=== PATIENT | male | born 2000 | race Caucasian/White ===

== ENCOUNTER 2020-03-02 05:21 | Emergency (ER) | payer BC, OTHER ==
[2020-03-02] MEDS ORDERED: ONDANSETRON 4 MG/2 ML VIAL ONE (06:14)
[2020-03-02] MEDS ORDERED: LORazepam 2 MG/ML VIAL ONE (06:14)
[2020-03-02] MEDS ORDERED: NA CHLORIDE 0.9% 2,000 ML ONE (06:14)
[2020-03-02 06:52] LABS: Urine Blood NEGATIVE (NEG); Urine Glucose NEGATIVE (NEG); Urine Protein TRACE (NEG); Urine Specific Gravity 1.025 (1.005-1.030); Urine pH 6.5 (5.0-7.0)
--- NOTE | 2020-03-02 07:13 | EDPHYS ---
Physician Documentation [facility] Name: Sotero Mchugh Age: 20 yrs Sex: Male : 2000 Arrival Date: 03/02/2020 Time: 05:22 Bed 8 Private MD: ED Physician Janes Cope HPI: 03/02 06:04 This 20 yrs old Male presents to ER via Ambulatory with complaints of pkl Anxiety, Nausea, Cough. 06:04 The patient presents to the emergency department with anxiety, depression, over work, pkl lost his job. Onset: The symptoms/episode began/occurred 3 month(s) ago. Patient has no appetite since yesterday. Saw his PCP and started on Buspirone and Protonix. Feels worse this morning and started having nausea and vomiting. Historical: - Allergies: 05:34 No Known Allergies; sg - Home Meds: 05:31 buspirone 7.5 mg Oral tab [Active]; pantoprazole oral oral [Active]; ea - PMHx: 05:31 GERD; Anxiety; ea - PSHx: 05:31 None; ea - Immunization history:: Adult Immunizations up to date. - Social history:: Smoking status: Patient denies any tobacco usage or history of. ROS: 06:04 Eyes: Negative for injury, pain, redness, and discharge, ENT: Negative for injury, pkl pain, and discharge, Neck: Negative for injury, pain, and swelling, Cardiovascular: Negative for chest pain, palpitations, and edema, Respiratory: Negative for shortness of breath, cough, wheezing, and pleuritic chest pain. 06:04 Abdomen/GI: Positive for nausea and vomiting, Negative for abdominal pain. 06:04 Back: Negative for acute changes. 06:04 : Negative for urinary symptoms. 06:04 MS/extremity: Negative for acute changes. 06:04 Skin: Negative for rash. 06:04 Neuro: Negative for altered mental status, loss of consciousness. 06:04 Psych: Positive for anxiety, depression. pkl Exam: 06:04 Head/Face: Normocephalic, atraumatic. Eyes: Pupils equal round and reactive to light, pkl extra-ocular motions intact. Lids and lashes normal. Conjunctiva and sclera are non-icteric and not injected. Cornea within normal limits. Periorbital areas with no swelling, redness, or edema. ENT: Nares patent. No nasal discharge, no septal abnormalities noted. Tympanic membranes are normal and external auditory canals are clear. Oropharynx with no redness, swelling, or masses, exudates, or evidence of obstruction, uvula midline. Mucous membranes moist. Neck: Trachea midline, no thyromegaly or masses palpated, and no cervical lymphadenopathy. Supple, full range of motion without nuchal rigidity, or vertebral point tenderness. No Meningismus. Chest/axilla: Normal chest wall appearance and motion. Nontender with no deformity. No lesions are appreciated. Cardiovascular: Regular rate and rhythm with a normal S1 and S2. No gallops, murmurs, or rubs. Normal PMI, no JVD. No pulse deficits. Respiratory: Lungs have equal breath sounds bilaterally, clear to auscultation and percussion. No rales, rhonchi or wheezes noted. No increased work of breathing, no retractions or nasal flaring. Abdomen/GI: Soft, non-tender, with normal bowel sounds. No distension or tympany. No guarding or rebound. No evidence of tenderness throughout. Back: No spinal tenderness. No costovertebral tenderness. Full range of motion. Skin: Warm, dry with normal turgor. Normal color with no rashes, no lesions, and no evidence of cellulitis. MS/ Extremity: Pulses equal, no cyanosis. Neurovascular intact. Full, normal range of motion. Neuro: Awake and alert, GCS 15, oriented to person, place, time, and situation. Cranial nerves II-XII grossly intact. Motor strength 5/5 in all extremities. Sensory grossly intact. Cerebellar exam normal. Normal gait. 06:04 Psych: Behavior/mood is anxious, Affect is calm, Patient has no thoughts/intents to harm self or others. Vital Signs: 05:30 BP 146 / 89; Pulse 88; Resp 16; Temp 98.1; Pulse Ox 100% on R/A; Weight 90.72 kg; sg Height 6 ft. 0 in. (182.88 cm); Pain 0/10; 06:53 BP 140 / 80; Pulse 87; Resp 16; Pulse Ox 98% on R/A; ea 05:30 Body Mass Index 27.12 (90.72 kg, 182.88 cm) sg MDM: 05:25 Patient medically screened. pkl 07:08 ED course: Patient signed out to me by Dr. Cope at shift change. Patient is here for ps1 psych evaluation. No SI/HI. Given ativan. Stable for discharge with follow up with [facility] OP. . 07:12 Data reviewed: vital signs, nurses notes, lab test result(s), and as a result, I will ps1 discharge patient. 03/02 05:56 Order name: UDS pkl 03/02 05:58 Order name: ETOH Level; Complete Time: 06:57 pkl 03/02 05:56 Order name: IV Saline Lock; Complete Time: 06:19 pkl 03/02 05:56 Order name: Labs collected and sent; Complete Time: 06:19 pkl 03/02 06:44 Order name: Urine Dipstick--Ancillary (enter results); Complete Time: 06:57 tt3 Administered Medications: 06:20 Drug: NS 0.9% 1000 ml Route: IV; Rate: 1000 ml; Site: left antecubital; ea 07:13 Follow up: IV Status: Completed infusion; IV Intake: 1000ml ss 06:20 Drug: NS 0.9% 1000 ml Route: IV; Rate: 125 ml/hr; Site: left antecubital; ea 07:54 Follow up: IV Status: IV converted to saline lock ss 06:20 Drug: Zofran (Ondansetron) 4 mg Route: IVP; Site: left antecubital; ea 06:42 Follow up: Response: No adverse reaction ea 06:42 Drug: Ativan 1 mg Route: IVP; Site: left antecubital; ea 06:53 Follow up: Response: No adverse reaction; Marked relief of symptoms ea 07:47 Drug: hydrOXYzine 25 mg Route: PO; ss 07:54 Follow up: Response: Medication administered at discharge. Disposition: 03/02/20 07:12 Discharged to Home. Impression: Adjustment disorder with depressed mood. - Condition is Stable. - Discharge Instructions: Adjustment Disorder, Adult. - Prescriptions for Hydroxyzine HCl 25 mg Oral Tablet - take 1 tablet by ORAL route every 6 hours As needed; 30 tablet. - Medication Reconciliation Form, Thank You Letter, Antibiotic Education, Prescription Opioid Use form. - Follow up: Private Physician; When: Upon discharge from the Emergency Department; Reason: for psychiatric evaluation at [facility]. . Follow up: Emergency Department; When: As needed; Reason: if you become suicidal or want to hurt anyone else with intent. . - Problem is new. - Symptoms are unchanged. Signatures: Dispatcher [employer] EDMS Oren Yen, RN Janes Mohan MD MD pkl Smirch, Shelby, RN RN ss Antunez, Elena, RN RN ea Singer, Phillip, MD MD ps1 Corrections: (The following items were deleted from the chart) 07:56 07:12 03/02/2020 07:12 Discharged to Home. Impression: Adjustment disorder with ss depressed mood. Condition is Stable. Forms are Medication Reconciliation Form, Thank You Letter, Antibiotic Education, Prescription Opioid Use. Follow up: Private Physician; When: Upon discharge from the Emergency Department; Reason: for psychiatric evaluation at [facility]. . Follow up: Emergency Department; When: As needed; Reason: if you become suicidal or want to hurt anyone else with intent. . Problem is new. Symptoms are unchanged. ps1
--- NOTE | 2020-03-02 07:13 | ER ---
Nurse's Notes [facility] Name: Sotero Mchugh Age: 20 yrs Sex: Male : 2000 Arrival Date: 03/02/2020 Time: 05:22 Bed 8 Private MD: Diagnosis: Adjustment disorder with depressed mood Presentation: 03/02 05:30 Chief complaint: Patient states: Having anxiety and decreased appetite since Sunday sg 03/01/2020, having started taking Buspirone and Protonix yesterday from the PCP, reports has not taken the buspirone this morning, but did take the protonix to help with the nausea, then vomited. Coronavirus screen: Client denies travel out of the [place] in the last 14 days. At this time, the client does not indicate any symptoms associated with coronavirus-19. Initial Sepsis Screen: Does the patient meet any 2 criteria? No. Patient's initial sepsis screen is negative. Does the patient have a suspected source of infection? No. Patient's initial sepsis screen is negative. Risk Assessment: Do you want to hurt yourself or someone else? Patient reports no desire to harm self or others. Onset of symptoms was March 01, 2020. Care prior to arrival: None. Transition of care: patient was not received from another setting of care. 05:30 Acuity: DANIEL 3 sg 05:30 Method Of Arrival: Ambulatory sg 06:24 Ebola Screen: No symptoms or risks identified at this time. ea Triage Assessment: 05:33 General: Appears in no apparent distress. General: Behavior is cooperative. GI: No ea deficits noted. Historical: - Allergies: 05:34 No Known Allergies; sg - Home Meds: 05:31 buspirone 7.5 mg Oral tab [Active]; pantoprazole oral oral [Active]; ea - PMHx: 05:31 GERD; Anxiety; ea - PSHx: 05:31 None; ea - Immunization history:: Adult Immunizations up to date. - Social history:: Smoking status: Patient denies any tobacco usage or history of. Screenin:29 Abuse screen: Denies threats or abuse. Nutritional screening: No deficits noted. ea Tuberculosis screening: No symptoms or risk factors identified. Fall Risk None identified. Assessment: 05:32 General: Appears in no apparent distress. Behavior is calm, cooperative, appropriate ea for age. Pain: Denies pain. Neuro: Level of Consciousness is awake, alert, obeys commands, Oriented to person, place, time. Cardiovascular: Patient's skin is warm and dry. Respiratory: Airway is patent Respiratory effort is even, unlabored, Respiratory pattern is regular, symmetrical. GI: Abdomen is non-distended. Derm: Skin is pink, warm \T\ dry. 06:24 Reassessment: Patient and/or family updated on plan of care and expected duration. Pain ea level reassessed. Patient is alert, oriented x 3, equal unlabored respirations, skin warm/dry/pink. 07:11 General: Appears in no apparent distress. comfortable, Behavior is calm, cooperative, ss appropriate for age, Denies fever, feeling ill, fatigue, chills. Pain: Denies pain. Neuro: Level of Consciousness is awake, alert, obeys commands, Oriented to person, place, time, situation. Cardiovascular: Patient's skin is warm and dry. Chest pain is denied. Respiratory: Airway is patent Respiratory effort is even, unlabored, Respiratory pattern is regular, symmetrical. GI: No signs and/or symptoms were reported involving the gastrointestinal system. Abdomen is non-distended, Patient currently denies diarrhea, nausea, vomiting. : No signs and/or symptoms were reported regarding the genitourinary system. EENT: Oral mucosa is moist. Musculoskeletal: Circulation, motion, and sensation intact. Range of motion: intact in all extremities, Swelling absent. Vital Signs: 05:30 BP 146 / 89; Pulse 88; Resp 16; Temp 98.1; Pulse Ox 100% on R/A; Weight 90.72 kg; sg Height 6 ft. 0 in. (182.88 cm); Pain 0/10; 06:53 BP 140 / 80; Pulse 87; Resp 16; Pulse Ox 98% on R/A; ea 05:30 Body Mass Index 27.12 (90.72 kg, 182.88 cm) ED Course: 05:22 Patient arrived in ED. cl3 05:25 Janes Cope MD is Attending Physician. pkl 05:27 Jesus Taylor, RN is Primary Nurse. em 05:29 Patient has correct armband on for positive identification. Bed in low position. Call ea light in reach. Side rails up X 1. Pulse ox on. NIBP on. 05:32 Arm band placed on right wrist. Patient placed in an exam room, on a stretcher, on ea pulse oximetry. 05:34 Triage completed. sg 06:10 Inserted saline lock: 22 gauge in left forearm, using aseptic technique. Blood ds4 collected. Missed attempt(s): 20 gauge in right forearm. Bleeding controlled, band aid applied, catheter tip intact. 07:55 No provider procedures requiring assistance completed. Patient did not have IV access ss during this emergency room visit. Administered Medications: 06:20 Drug: NS 0.9% 1000 ml Route: IV; Rate: 1000 ml; Site: left antecubital; ea 07:13 Follow up: IV Status: Completed infusion; IV Intake: 1000ml ss 06:20 Drug: NS 0.9% 1000 ml Route: IV; Rate: 125 ml/hr; Site: left antecubital; ea 07:54 Follow up: IV Status: IV converted to saline lock ss 06:20 Drug: Zofran (Ondansetron) 4 mg Route: IVP; Site: left antecubital; ea 06:42 Follow up: Response: No adverse reaction ea 06:42 Drug: Ativan 1 mg Route: IVP; Site: left antecubital; ea 06:53 Follow up: Response: No adverse reaction; Marked relief of symptoms ea 07:47 Drug: hydrOXYzine 25 mg Route: PO; ss 07:54 Follow up: Response: Medication administered at discharge. ss Intake: 07:13 IV: 1000ml; Total: 1000ml. ss Outcome: 07:12 Discharge ordered by . ps1 07:55 Discharged to home ambulatory, with family. ss 07:55 Condition: improved 07:55 Discharge instructions given to patient, family, Instructed on discharge instructions, follow up and referral plans. medication usage, Demonstrated understanding of instructions, follow-up care, medications, Prescriptions given X 1. 07:56 Patient left the ED. ss Signatures: Oren Yen RN RN sg Lam, Pin, MD MD pkl Munoz, Edgar, RN RN em Smirch, Shelby, RN RN ss Alejandro Aguero ds4 Chrissy Chatterjee RN RN ea Singer, Phillip, MD MD ps1 Digna Ríos cl3
[2020-03-02 07:18] LABS: Barbiturates NEGATIVE (NEGATIVE); Benzodiazepines NEGATIVE (NEGATIVE); Cocaine NEGATIVE (NEGATIVE); METHAMPHETAM NEGATIVE (NEGATIVE); Methadone NEGATIVE (NEGATIVE); Opiates NEGATIVE (NEGATIVE); Phencyclidine NEGATIVE (NEGATIVE); THC Cannibis POSITIVE (NEGATIVE)
[2020-03-02] MEDS ORDERED: hydroCHLOROthiazide 25 MG TAB ONE (07:57)
[2020-03-02] MEDS ORDERED: hydrOXYzine HCL 25 MG TAB ONE (07:58)
[2020-03-02 09:57] VITALS: BP 140/80; O2SAT 98
[2020-03-02 09:59] VITALS: TEMP 98.1
== END 2020-03-02 07:56 | disposition home or self-care (01) ==
LOC: ER 05:21
DX: F43.21 Adjustment disorder with depressed mood (principal); F41.9 Anxiety disorder, unspecified; K21.9 Gastro-esophageal reflux disease without esophagitis
CPT/HCPCS: 96361; 36415; 80320; 80307 ×8; 81003; 96375; 96374; 99284; J7030; J2405